=== PATIENT | female | born 1965 | race Caucasian/White ===

== ENCOUNTER 2017-07-08 09:59 | Emergency (ER) ==
[2017-07-08 10:02] VITALS: BP 128/76; TEMP 96.8; BMI 18.4
[2017-07-08] MEDS ORDERED: ZOFRAN 4 MG/2 ML IVP STA ×2 (10:21→11:34)
[2017-07-08] MEDS ORDERED: ZOFRAN 4 MG/2 ML ONE (10:23)
[2017-07-08] MEDS ORDERED: SODIUM CHLORIDE 500 ML IV STA (10:30)
--- NOTE | 2017-07-08 10:31 | ED.PDOC ---
General ED Provider: Dr. JAQUI AGUILAR Chief Complaint: Chest Pain Stated Complaint: Chest Pain with Nausea and vomiting; Onset this morning Time Seen by Physician: 10:10 Mode of Arrival: Walk-In Information Source: Patient, Family Exam Limitations: No limitations Primary Care Provider: JAQUI RIVERA Nursing and Triage Documentation Reviewed and Agree: Yes Reviewed sepsis parameters & appropriate labs ordered?: Yes System Inflammatory Response Syndrome: Not Applicable Sepsis Protocol: For patient's 13 years and over: Temp is 96.8 and below OR 101 and greater Pulse >90 BPM Resp >20/minute Acutely Altered Mental Status Are patient's symptoms suggestive of a new infection, such as: -Pneumonia -Skin, Soft Tissue -Endocarditis -UTI -Bone, Joint Infection -Implantable Device -Acute Abdominal Infection -Wound Infection -Meningitis -Blood Stream Catheter Infection -Unknown System Inflammatory Response Syndrome: Not Applicable Review of Systems - Review Of Systems Constitutional: Reports: Malaise, Weakness. Denies: Sweats Eyes: Reports: No symptoms Ears, Nose, Mouth, Throat: Reports: No symptoms Respiratory: Reports: No symptoms Cardiac: Reports: Chest pain. Denies: Irregular heart rate, Lightheadedness, Palpitations GI: Reports: Nausea, Vomiting : Reports: No symptoms Musculoskeletal: Reports: Neck pain Skin: Reports: No symptoms Neurological: Reports: Anxiety, Headache, Other (Neck pain. has arachnoid cyst on base of brain) Endocrine: Reports: No symptoms Hematologic/Lymphatic: Reports: No symptoms All Other Systems: Reviewed and Negative Past Medical History - Past Medical History Endocrine: Reports: None Cardiovascular: Reports: None Respiratory: Reports: None Hematological: Reports: None Gastrointestinal: Reports: None Genitourinary: Reports: None Neuro/Psych: Reports: Other (Headache, neck pain ) Musculoskeletal: Reports: None Cancer: Reports: None Last Menstrual Period: YEARS - Surgical History General Surgical History: Reports: None - Family History Family History: Reports: None - Social History Smoking Status: Current every day smoker, Heavy tobacco smoker Hx Substance Use: No Alcohol Screening: None Physical Exam - Physical Exam Appearance: Ill-appearing Ill-appearing: Moderate Pain Distress: Moderate Eyes: KAMRYN, EOMI, Conjunctiva clear, Conjunctiva inflammed ENT: Ears normal, Oropharynx normal, Epistaxis Neck: Supple Respiratory: Airway patent, Breath sounds clear, Breath sounds equal Cardiovascular: RRR, Pulses normal, No rub, No murmur GI/: Soft, Nontender, No masses Musculoskeletal: Normal strength Skin: Warm, Dry Neurological: Sensation intact, Alert, Oriented Psychiatric: Affect appropriate, Mood appropriate, Anxious Critical Care Note - Critical Care Note Total Time (mins): 0 Course - Course Hematology/Chemistry: 07/08/17 10:35 07/08/17 10:35 Orders, Labs, Meds: Lab Review 07/08/17 07/08/17 07/08/17 10:35 10:35 10:35 WBC 17.02 H RBC 4.44 Hgb 13.7 Hct 40.6 MCV 91.4 MCH 30.9 MCHC 33.7 RDW Coeff of [place] 13.2 Plt Count 464 H Immature Gran % (Auto) 0.5 Neut % (Auto) 80.4 Lymph % (Auto) 13.5 [place] % (Auto) 5.0 Eos % (Auto) 0.3 Baso % (Auto) 0.3 Immature Gran # (Auto) 0.1 Neut # 13.7 H Lymph # 2.3 [place] # 0.9 Eos # 0.1 Baso # 0.1 Sodium 142 Potassium 3.7 Chloride 106 Carbon Dioxide 23 Anion Gap 16.7 BUN 14 Creatinine 0.74 Estimated GFR (MDRD) 83.00 BUN/Creatinine Ratio 18.91 Glucose 165 H Calcium 9.9 Total Bilirubin 0.8 AST 21 ALT 17 Alkaline Phosphatase 91 Total Creatine Kinase 34 Troponin I < 0.0100 Total Protein 7.8 Albumin 3.7 Globulin 4.1 Albumin/Globulin Ratio 0.90 Lipase 18 Urine Color Urine Clarity Urine pH Ur Specific [place] Urine Protein Urine Glucose (UA) Urine Ketones Urine Blood Urine Nitrite Urine Bilirubin Urine Urobilinogen Ur Leukocyte Esterase Influenza A (Rapid) Influenza B (Rapid) 07/08/17 07/08/17 13:17 15:43 WBC RBC Hgb Hct MCV MCH MCHC RDW Coeff of [place] Plt Count Immature Gran % (Auto) Neut % (Auto) Lymph % (Auto) [place] % (Auto) Eos % (Auto) Baso % (Auto) Immature Gran # (Auto) Neut # Lymph # [place] # Eos # Baso # Sodium Potassium Chloride Carbon Dioxide Anion Gap BUN Creatinine Estimated GFR (MDRD) BUN/Creatinine Ratio Glucose Calcium Total Bilirubin AST ALT Alkaline Phosphatase Total Creatine Kinase Troponin I Total Protein Albumin Globulin Albumin/Globulin Ratio Lipase Urine Color Yellow Urine Clarity Clear Urine pH >=9.0 Ur Specific [place] 1.010 Urine Protein Negative Urine Glucose (UA) Negative Urine Ketones 3+ Urine Blood Negative Urine Nitrite Negative Urine Bilirubin Negative Urine Urobilinogen 0.2 Ur Leukocyte Esterase Negative Influenza A (Rapid) Negative by naat Influenza B (Rapid) Negative by naat Orders Category Date Time Status EKG-(ED ONLY) Stat CARDIO 07/08/17 10:28 Completed NPO REMINDER: IMAGING ONCE CARE 07/08/17 12:39 Completed NPO REMINDER: IMAGING ONCE CARE 07/08/17 12:45 Completed ED [employer] AP[employer] .ONCE EMERGENCY 07/08/17 10:26 Active BLOOD CULTURE (ED ONLY) Stat LAB 07/08/17 12:50 Received C-REACTIVE PROTEIN Stat LAB 07/08/17 12:40 Received CBC W/ AUTO DIFF Stat LAB 07/08/17 10:35 Completed COMPREHENSIVE METABOLIC PANEL Stat LAB 07/08/17 10:35 Completed CREATINE KINASE Stat LAB 07/08/17 10:35 Completed LIPASE Stat LAB 07/08/17 10:35 Completed MOLECULAR FLU A/B Stat LAB 07/08/17 13:17 Completed TROPONIN I Stat LAB 07/08/17 10:35 Completed UA [URINALYSIS C & S IF INDICATED] Stat LAB 07/08/17 15:43 Completed Famotidine Inj [Pepcid] MEDS 07/08/17 11:35 Discontinued 20 mg IVP ONCE STA Ondansetron HCl/Pf [Zofran 4 mg/2 ml] MEDS 07/08/17 10:23 Discontinued 4 mg .ROUTE .STK-MED ONE Ondansetron HCl/Pf [Zofran 4 mg/2 ml] MEDS 07/08/17 10:21 Discontinued 4 mg IVP ONCE STA Ondansetron HCl/Pf [Zofran 4 mg/2 ml] MEDS 07/08/17 11:34 Discontinued 4 mg IVP ONCE STA Pantoprazole Sodium [Protonix IV] MEDS 07/08/17 15:05 Discontinued 40 mg IVP ONCE STA Promethazine HCl [Phenergan 25 mg/ml Vial] MEDS 07/08/17 13:42 Discontinued 25 mg .ROUTE .STK-MED ONE Promethazine HCl [Phenergan 25 mg/ml Vial] 25 mg MEDS 07/08/17 13:38 Discontinued 0.9 % Sodium Chloride [Sodium Chloride] 50 ml IV ONCE Sodium Chloride 0.9% [Sodium Chloride] 500 ml MEDS 07/08/17 10:30 Discontinued IV 125 mls/hr CHEST, 1V AP ONLY Stat RADS 07/08/17 10:[address] ABDOMEN/PELVIS W/WO CONTRAS Stat RADS 07/08/17 12:[address] CERVICAL SPINE W/O CONTRAST Stat RADS 07/08/17 12:37 Completed Medications Discontinued Medications Generic Name Dose Route Start Last Admin Trade Name Duncan PRN Reason Stop Dose Admin Famotidine 20 mg 07/08/17 11:35 07/08/17 11:48 Pepcid IVP 07/08/17 11:36 20 mg ONCE STA Administration Sodium Chloride 500 mls @ 125 mls/hr 07/08/17 10:30 07/08/17 10:35 Sodium Chloride IV 07/08/17 14:29 125 mls/hr .Q4H STA Administration Promethazine HCl 25 mg/ Sodium 51 mls @ 75 mls/hr 07/08/17 13:38 07/08/17 13: 46 Chloride IV 07/08/17 14:18 75 mls/hr ONCE STA Administration Ondansetron HCl 4 mg 07/08/17 10:21 07/08/17 10:26 Zofran 4 Mg/2 Ml IVP 07/08/17 10:22 4 mg ONCE STA Administration Ondansetron HCl 4 mg 07/08/17 11:34 07/08/17 11:45 Zofran 4 Mg/2 Ml IVP 07/08/17 11:35 4 mg ONCE STA Administration Pantoprazole Sodium 40 mg 07/08/17 15:05 07/08/17 15:39 Protonix Iv IVP 07/08/17 15:06 40 mg ONCE STA Administration Vital Signs: Temp Pulse Resp BP Pulse Ox 07/08/17 09:59 96.8 F L 69 24 128/76 99 Departure - Departure Time of Disposition: 17:50 Disposition: HOME SELF-CARE Discharge Problem: Gastritis, Neck pain, acute Instructions: Gastritis (ED), Neck Pain (ED) Condition: Good Pt referred to PMD for follow-up: Yes (Follow up PCP in 5-7 days) Additional Instructions: Discussed diagnostic findings witih patient and her family To follow up for re evaluation with PCP in next 1 week Prescriptions: Famotidine [Pepcid] 20 mg PO BIDAC #60 tablet Promethazine HCl [Phenergan Tab] 25 mg PO Q6H #20 tablet Allergies/Adverse Reactions: Allergies Sulfa (Sulfonamide Antibiotics) Adverse Reaction (Verified 07/08/17 10:10) Home Medications: Ambulatory Orders Diclofenac Sodium 75 mg PO BID 07/08/17 Famotidine [Pepcid] 20 mg PO BIDAC #60 tablet 07/08/17 Promethazine HCl [Phenergan Tab] 25 mg PO Q6H #20 tablet 07/08/17 Venlafaxine HCl 50 mg PO BID 07/08/17
--- NOTE | 2017-07-08 10:58 | DI ---
EXAM: CHEST FRONTAL VIEW HISTORY: Pain. COMPARISON: None FINDINGS: Heart size and mediastinum within normal limits. Lungs are free of infiltrate. No co nsolidation or pleural fluid. There is no pneumothorax or acute bony finding. IMPRESSION: Findings within normal limits.
[2017-07-08] MEDS ORDERED: PEPCID IVP STA (11:35)
[2017-07-08] MEDS ORDERED: PHENERGAN 25 MG/ML VIAL 25 MG in SODIUM CHLORIDE 50 ML IV STA (13:38)
[2017-07-08] MEDS ORDERED: PHENERGAN 25 MG/ML VIAL ONE (13:42)
--- NOTE | 2017-07-08 13:42 | CT ---
EXAM: CT of the cervical spine without contrast History: Neck pain Technique: Multiplanar CT images through the cervical spine were obtained without the administration of IV contrast Findings: The visualized upper lungs are free of consolidation. The visualized airway remains patent . No acute fracture or subluxation of the cervical spine. No prevertebral soft tissue swelling. Prede ntal space is not widened. Mild to moderate degenerative changes of the left tenth mandibular joint. Mild to moderate multilevel degenerative disc space narrowing with a few small anterior osteophytes . C2-3: No significant disc bulge, central canal stenosis or bony neural foraminal narrowing. C3-4: No significant disc bulge or central canal stenosis. Mild to moderate right and mild left bon y neural foraminal narrowing secondary to uncovertebral and facet hypertrophy. C4-5: No significant disc bulge or bony central canal stenosis. Severe left and moderate right bony neural foraminal narrowing secondary to uncovertebral and facet hypertrophy. C5-6: No significant disc bulge or central canal stenosis. Severe left and mild to moderate right b ramesh neural foraminal narrowing secondary to uncovertebral and facet hypertrophy. C6-7: No significant disc bulge or bony central canal stenosis. Mild to moderate bilateral bony melissa ral foraminal narrowing secondary to uncovertebral and facet hypertrophy. Impression: 1. No acute osseous abnormality of the cervical spine. 2. Degenerative changes with level by level analysis as detailed above.
--- NOTE | 2017-07-08 13:45 | CT ---
EXAM: CT ABDOMEN AND PELVIS HISTORY: Abdominal pain, vomiting TECHNIQUE: CT abdomen and pelvis with and without intravenous contrast. Images were reconstructed u sing 5 mm section thickness. Reformations were prepared. 75 mL Omnipaque. COMPARISON: None FINDINGS: Diagnostic limitations exist without including contrast enhanced images. No focal hepatic or splenic lesions identified. Gallbladder is unremarkable. Pancreas and adrenal glands are unremarkable. Th e kidneys and ureters appear normal. The abdominal aorta is within normal limits. Questionable mild fold thickening of the stomach. Elongated stomach with no significant distension. The appendix has no evidence of inflammation. Redundant colon with scattered mild diverticulosis. U terus and urinary bladder appear grossly normal. There are varicose gonadal veins incidentally noted. There is no ascites. No ventral abdominal wall hernia. Bones reveal no acute abnormality and the lung bases are clear. N o pneumo. IMPRESSION: Mild gastric rugal thickening may indicate gastritis. There is no gastric distension o r abnormal bowel gas pattern. No evidence of enteritis or colitis. A few scattered colonic diverticu la are present without diverticulitis.
[2017-07-08] MEDS ORDERED: PROTONIX IV IVP STA (15:05)
== END 2017-07-08 18:00 | disposition home or self-care (01) ==
LOC: ED 09:59
DX: K29.70 Gastritis, unspecified, without bleeding (principal); M54.2 Cervicalgia; R51 Headache; F17.210 Nicotine dependence, cigarettes, uncomplicated
CPT/HCPCS: 36415; 80053; 81001; 82550; 83690; 84484; 85025; 86140; 87040; 87502; 93005; 93010; 96361; 96365; 96374; 96375; 96376; 99284